=== PATIENT | male | born 1980 | race Caucasian/White ===

== ENCOUNTER 2019-06-17 17:37 | Emergency (ER) | payer OTHER ==
[~2019-06-17] VITALS: Ht 172.7 cm; Wt 70.5 kg
[~2019-06-17 17:37] MED LIST: MVI
[2019-06-17 17:47] VITALS: BP 130/73; TEMP 98.7
[2019-06-17] MEDS ORDERED: PREDNISONE20 MG PO (18:05)
[2019-06-17 18:24] VITALS: PULSE 56
== END 2019-06-17 18:26 | disposition home or self-care (01) ==
LOC: COL.ER 17:37
DX: L50.9 Urticaria, unspecified (principal); Z90.49 Acquired absence of other specified parts of digestive tract